=== PATIENT | male | born 1980 | race Two or more races ===

== ENCOUNTER 2017-05-11 16:24 | Emergency (ER) | payer MEDICAID ==
[~2017-05-11] VITALS: Ht 177.8 cm; Wt 81.6 kg
[2017-05-11 19:07] VITALS: BP 139/82
[2017-05-11] MEDS ORDERED: cefTRIAXone SOD 1,000 MG VL IM ONE (19:45)
[2017-05-11] MEDS ORDERED: KETOROLAC TROMETH 60MG/2ML VIAL IM ONE (19:45)
== END 2017-05-11 20:20 | disposition home or self-care (01) ==
LOC: ER 16:30
DX: K04.7 Periapical abscess without sinus (principal)
CPT/HCPCS: 96372; 99284; J0696; J1885

== ENCOUNTER 2017-10-28 19:01 | Emergency (ER) | payer MEDICAID ==
[~2017-10-28] VITALS: Ht 175.3 cm; Wt 79.4 kg
[2017-10-28 19:47] VITALS: BP 152/95
[2017-10-28] MEDS ORDERED: LIDOCAINE 1% HCL (LOCAL ANESTH.) INJ 20ML MDV IJ ONE (21:45)
[2017-10-28] MEDS ORDERED: LIDOCAINE 1% (LOCAL ANESTH.) PF 5ml SDV ONE (21:50)
[2017-10-28] MEDS ORDERED: TETANUS-DIPTH-ACEL PERTUSSIS 0.5ML SYRG IM ONE (22:15)
[2017-10-28] MEDS ORDERED: cefTRIAXone SOD 500 MG VL IM ONE (23:00)
[2017-10-28] MEDS ORDERED: cefTRIAXone SOD 1,000 MG VL IM ONE (23:15)
== END 2017-10-28 23:32 | disposition home or self-care (01) ==
LOC: ER 19:01
DX: L03.012 Cellulitis of left finger (principal); F17.210 Nicotine dependence, cigarettes, uncomplicated; F12.10 Cannabis abuse, uncomplicated
CPT/HCPCS: 10060; 90471; 90715; 96372; 99284; J0696

== ENCOUNTER 2019-04-26 16:33 | Emergency (ER) | payer MEDICAID | END 2019-04-26 16:46 | disposition left against medical advice (07) | LOC: EDBD → ER 16:33 | DX: M79.621 Pain in right upper arm (principal); Z53.21 Procedure and treatment not carried out due to patient leaving prior to being seen by health care provider ==

== ENCOUNTER 2019-04-27 15:17 | Emergency (ER) | payer MEDICAID ==
[~2019-04-27] VITALS: Ht 177.8 cm; Wt 77.1 kg
[2019-04-27 15:51] VITALS: BP 138/84
== END 2019-04-27 17:39 | disposition home or self-care (01) ==
LOC: ER 15:18
DX: L03.011 Cellulitis of right finger (principal); F17.210 Nicotine dependence, cigarettes, uncomplicated
CPT/HCPCS: 73140